=== PATIENT | female | born 1960 ===

== ENCOUNTER 2020-10-21 10:11 | Day surgery (SDC) | payer BC ==
[~2020-10-21 10:11] MED LIST: Metoclopramide 10 MG/2 ML SDV IV PRN; Sodium Chloride 0.9% 1,000 ML IV SCH
[2020-10-21] MEDS ORDERED: Propofol 1,000 MG/100 ML SDV ONE (12:55)
--- NOTE | 2020-10-21 16:40 | OR ---
DATE OF OPERATION: 10/21/2020 SURGEON: Tye Tobias MD PREOPERATIVE DIAGNOSIS: Screening colonoscopy. POSTOPERATIVE DIAGNOSIS: Screening colonoscopy. PROCEDURE: Screening colonoscopy. ANESTHESIA: MAC. ESTIMATED BLOOD LOSS: None. COMPLICATIONS: None. INDICATION FOR THE PROCEDURE: The patient is a 60-year-old female here today for her first colonoscopy. Denies any family history. Denies any change in bowel habits. DESCRIPTION OF PROCEDURE: Informed consent was obtained from the patient. The patient was taken to the operating room and placed on table in left lateral decubitus position. Monitored anesthesia care was administered. Digital rectal exam performed that was normal. Colonoscope then advanced through the anus directed toward the cecum. Cecum was reached and identified by appendiceal orifice and ileocecal valve. Colonoscope then slowly withdrawn. No polyps, no masses. No areas of ischemia or inflammation. No diverticula noted. Rectum was also otherwise unremarkable. Colonoscope then fully withdrawn. FINDINGS: Normal colon. RECOMMENDATIONS: We would recommend repeat screening colonoscopy in 10 years. MARLENA/ULYSSES /[id number]
== END 2020-10-21 13:55 | disposition home or self-care (01) ==
LOC: LB.SDS 10:11
PROVIDERS: ATTEND Surgery
DX: Z12.11 Encounter for screening for malignant neoplasm of colon (principal); E78.00 Pure hypercholesterolemia, unspecified; E03.9 Hypothyroidism, unspecified
CPT/HCPCS: J2704; J7030